=== PATIENT | female | born 1985 | race Caucasian/White ===

== ENCOUNTER 2016-11-16 18:13 | Emergency (ER) | payer OTHER ==
[~2016-11-16] VITALS: Ht 160 cm; Wt 102.3 kg
[2016-11-16 21:00] VITALS: BP 134/81
[2016-11-16] MEDS ORDERED: IBUPROFEN 800 MG TABLET PO ONE (21:00)
== END 2016-11-16 21:06 | disposition home or self-care (01) ==
LOC: EMS 18:19
DX: H10.89 Other conjunctivitis (principal); H57.8 Other specified disorders of eye and adnexa
CPT/HCPCS: 99283

== ENCOUNTER 2017-11-09 08:34 | Emergency (ER) | payer OTHER ==
[~2017-11-09] VITALS: Ht 160 cm; Wt 81.8 kg
[2017-11-09] MEDS: IBUPROFEN 800 MG TABLET PO ONE (09:19)
[2017-11-09 10:37] VITALS: BP 129/81
== END 2017-11-09 10:42 | disposition home or self-care (01) ==
LOC: EMS 08:35
DX: S93.401A Sprain of unspecified ligament of right ankle, initial encounter (principal); M25.774 Osteophyte, right foot; Z91.040 Latex allergy status; W18.39XA Other fall on same level, initial encounter; Y93.89 Activity, other specified; Y92.89 Other specified places as the place of occurrence of the external cause; Y99.8 Other external cause status
CPT/HCPCS: 29515; 99284

== ENCOUNTER 2018-07-04 11:07 | Emergency (ER) | payer OTHER ==
[~2018-07-04] VITALS: Ht 160 cm; Wt 90.9 kg
[2018-07-04] MEDS ORDERED: LISI-661 PO (11:24)
[2018-07-04] MEDS ORDERED: ESCI10TA PO (11:24)
[2018-07-04] MEDS ORDERED: PERTUSS(ACELL),DIPH,TET VAC/PF 0.5 ML VIAL IM ONE (11:45)
[2018-07-04] MEDS ORDERED: BACITRACIN 0.9 GM PACKET OINTMENT TP ONE (12:45)
[2018-07-04 13:03] VITALS: BP 127/79
== END 2018-07-04 13:28 | disposition home or self-care (01) ==
LOC: EMS 11:08
DX: S51.812A Laceration without foreign body of left forearm, initial encounter (principal); Z91.040 Latex allergy status; W45.8XXA Other foreign body or object entering through skin, initial encounter; Y93.39 Activity, other involving climbing, rappelling and jumping off; Y92.89 Other specified places as the place of occurrence of the external cause; Y99.8 Other external cause status
CPT/HCPCS: 90471; 90715

== ENCOUNTER 2018-10-06 19:11 | Emergency (ER) | payer OTHER ==
[~2018-10-06] VITALS: Ht 170.2 cm; Wt 109.1 kg
[~2018-10-06 19:11] MED LIST: ESCI10TA PO; LISI-661 PO
[2018-10-06] MEDS ORDERED: HYDR25TA PO (19:41)
[2018-10-06] MEDS ORDERED: OLAN2.5T3 PO (19:41)
[2018-10-06 20:12] LABS: BASOPHILS % (AUTO) 1.1 % (0.0-2.0); EOSINOPHILS % (AUTO) 1.2 % (1.0-6.0); HEMATOCRIT 36.4 % (36-46); HEMOGLOBIN 11.8 g/dL (12.0-16.0); LYMPHOCYTES # (AUTO) 2.8 K/uL (1.0-4.8); LYMPHOCYTES % (AUTO) 31.4 % (22.0-44.0); MEAN CORPUSCULAR HEMOGLOBIN 26.3 pg (26.0-34.0); MEAN CORPUSCULAR HGB CONC 32.5 G/dL (31.0-37.0); MEAN CORPUSCULAR VOLUME 81 fL (80-100); MONOCYTES % (AUTO) 11.3 % (2.0-9.0); NEUTROPHILS # (AUTO) 4.9 K/uL (1.8-7.7); PLATELET COUNT (AUTO) 274 K/uL (150-450); RED BLOOD CELL COUNT(AUTO) 4.51 MIL/uL (4.00-5.20); RED CELL DISTRIBUTION WIDTH 14.5 % (11.5-14.5)
[2018-10-06 20:16] VITALS: BP 143/88
[2018-10-06 20:45] LABS: ANION GAP 15 mmol/L (8-16); CALCIUM, TOTAL 9.4 mg/dL (8.8-10.5); CARBON DIOXIDE 21 mmol/L (22-29); CHLORIDE 100 mmol/L (98-107); CREATININE 1.09 mg/dL (0.60-1.30); GLOMERULAR FILTR. RATE CALC 57 mL/min (>60); GLUCOSE,RANDOM 93 mg/dL (70-110); POTASSIUM 3.4 mmol/L (3.5-5.1); SODIUM SERUM 136 mmol/L (136-145); UREA NITROGEN, BLOOD 19 mg/dL (7-18)
[2018-10-06 20:50] LABS: ALANINE AMINOTRANSFERASE 82 U/L (12-78); ALBUMIN 3.8 g/dL (3.4-5.0); ALKALINE PHOSPHATASE 82 U/L (46-116); ASPARTATE AMINOTRANSFERASE 163 U/L (15-37); BILIRUBIN,TOTAL 1.5 mg/dL (0.1-1.0); HCG,QUANTITATIVE < 1 mIU/mL (0-6); TOTAL PROTEIN, SERUM 7.8 g/dL (6.4-8.2)
== END 2018-10-06 21:45 | disposition left against medical advice (07) ==
LOC: EMS 19:12
DX: Z00.8 Encounter for other general examination (principal); Z53.21 Procedure and treatment not carried out due to patient leaving prior to being seen by health care provider
CPT/HCPCS: 36415; 80053; 84702; 85025; G0480

== ENCOUNTER 2021-02-02 15:33 | Emergency (ER) | payer OTHER ==
[~2021-02-02] VITALS: Ht 170.2 cm; Wt 100.0 kg
[~2021-02-02 15:33] MED LIST changes: +ESCI-8 PO; -ESCI10TA PO; +HYDR25TA2 PO; -LISI-661 PO; +LISI-893 PO; +OLAN2.5T3 PO
[2021-02-02] MEDS ORDERED: IBUP-2071 PO (15:54)
[2021-02-02 16:35] LABS: BASOPHILS % (AUTO) 0.9 % (0.0-2.0); EOSINOPHILS % (AUTO) 2.9 % (1.0-6.0); LYMPHOCYTES % (AUTO) 31.2 % (22.0-44.0); MEAN CORPUSCULAR HGB CONC 32.5 G/dL (31.0-37.0); MEAN CORPUSCULAR VOLUME 83 fL (80-100); MONOCYTES # (AUTO) 0.5 K/uL (0.1-1.0); MONOCYTES % (AUTO) 7.2 % (2.0-9.0); NEUTROPHILS # (AUTO) 3.7 K/uL (1.8-7.7); NEUTROPHILS % (AUTO) 57.8 % (40.0-70.0); PLATELET COUNT (AUTO) 262 K/uL (150-450); RED BLOOD CELL COUNT(AUTO) 4.81 MIL/uL (4.00-5.20); RED CELL DISTRIBUTION WIDTH 17.4 % (11.5-14.5)
[2021-02-02 16:49] LABS: ANION GAP 12 mmol/L (8-16); CARBON DIOXIDE 25 mmol/L (22-29); CHLORIDE 104 mmol/L (98-107); CREATININE 0.82 mg/dL (0.60-1.30); GLOMERULAR FILTR. RATE CALC > 60 mL/min (>60); GLUCOSE,RANDOM 90 mg/dL (70-110); POTASSIUM 4.1 mmol/L (3.5-5.1); SODIUM SERUM 141 mmol/L (136-145); UREA NITROGEN, BLOOD 14 mg/dL (7-18)
[2021-02-02 17:01] LABS: HCG,QUANTITATIVE 1 mIU/mL (0-6)
[2021-02-02] MEDS ORDERED: OLAN10TA74 PO (17:52)
[2021-02-02] MEDS ORDERED: IBUPROFEN 600 MG TABLET PO ONE (18:00)
[2021-02-02 18:02] VITALS: BP 129/72
== END 2021-02-02 18:43 | disposition home or self-care (01) ==
LOC: EMS 15:36
DX: N92.0 Excessive and frequent menstruation with regular cycle (principal)
CPT/HCPCS: 76856; 80048; 84702; 85025; 99284

== ENCOUNTER 2021-04-08 18:28 | Emergency (ER) | payer OTHER ==
[~2021-04-08] VITALS: Ht 160 cm; Wt 94.5 kg
[~2021-04-08 18:28] MED LIST changes: +IBUP-2071 PO; +OLAN10TA74 PO; -OLAN2.5T3 PO
[2021-04-08 20:17] LABS: COVID AG,FIA SOURCE NASOPHARYNGEAL
[2021-04-08 20:25] VITALS: BP 115/74
== END 2021-04-08 21:33 | disposition home or self-care (01) ==
LOC: EMS 18:36
DX: R05.9 Cough, unspecified (principal); I10 Essential (primary) hypertension; F17.210 Nicotine dependence, cigarettes, uncomplicated; F12.90 Cannabis use, unspecified, uncomplicated; F15.90 Other stimulant use, unspecified, uncomplicated; Z20.822 Contact with and (suspected) exposure to COVID-19
CPT/HCPCS: 87426; 99283; U0003

== ENCOUNTER 2021-05-11 15:41 | Emergency (ER) | payer OTHER ==
[~2021-05-11] VITALS: Ht 160 cm; Wt 90.9 kg
[2021-05-11 16:37] VITALS: BP 144/92
== END 2021-05-11 18:00 | disposition left against medical advice (07) ==
LOC: EMS 15:53
DX: J06.9 Acute upper respiratory infection, unspecified (principal); F17.210 Nicotine dependence, cigarettes, uncomplicated; Z20.822 Contact with and (suspected) exposure to COVID-19; Z91.040 Latex allergy status
CPT/HCPCS: 99282; 99406; Z7502

== ENCOUNTER 2021-07-02 14:57 | Emergency (ER) | payer OTHER ==
[~2021-07-02] VITALS: Ht 160 cm; Wt 90.9 kg
[2021-07-02 15:34] VITALS: BP 134/77
[2021-07-02 15:56] LABS: BASOPHILS % (AUTO) 0.9 % (0.0-2.0); EOSINOPHILS % (AUTO) 3.4 % (1.0-6.0); HEMATOCRIT 36.5 % (36-46); HEMOGLOBIN 12.1 g/dL (12.0-16.0); LYMPHOCYTES # (AUTO) 1.8 K/uL (1.0-4.8); LYMPHOCYTES % (AUTO) 26.2 % (22.0-44.0); MEAN CORPUSCULAR HEMOGLOBIN 28.1 pg (26.0-34.0); MEAN CORPUSCULAR HGB CONC 33.2 G/dL (31.0-37.0); MEAN CORPUSCULAR VOLUME 85 fL (80-100); MONOCYTES # (AUTO) 0.7 K/uL (0.1-1.0); MONOCYTES % (AUTO) 10.8 % (2.0-9.0); NEUTROPHILS # (AUTO) 3.9 K/uL (1.8-7.7); NEUTROPHILS % (AUTO) 58.7 % (40.0-70.0); PLATELET COUNT (AUTO) 257 K/uL (150-450); RED BLOOD CELL COUNT(AUTO) 4.32 MIL/uL (4.00-5.20); RED CELL DISTRIBUTION WIDTH 14.7 % (11.5-14.5)
[2021-07-02] MEDS ORDERED: IBUP-2070 PO (16:22)
[2021-07-02] MEDS ORDERED: KETOROLAC TROMETHAMINE 30 MG/ML VIAL IM ONE (16:30)
== END 2021-07-02 16:43 | disposition home or self-care (01) ==
LOC: EMS 15:02
DX: N93.8 Other specified abnormal uterine and vaginal bleeding (principal); F17.210 Nicotine dependence, cigarettes, uncomplicated; Z79.899 Other long term (current) drug therapy; Z91.040 Latex allergy status
CPT/HCPCS: 36415; 84702; 85025; 96372; 99283; J1885

== ENCOUNTER 2021-11-18 22:29 | Emergency (ER) | payer OTHER ==
[~2021-11-18] VITALS: Ht 160 cm; Wt 84.1 kg
[~2021-11-18 22:29] MED LIST changes: +IBUP-2070 PO
[2021-11-18 23:29] LABS: BASOPHILS % (AUTO) 0.9 % (0.0-2.0); HEMOGLOBIN 12.7 g/dL (12.0-16.0); LYMPHOCYTES # (AUTO) 2.7 K/uL (1.0-4.8); MEAN CORPUSCULAR HEMOGLOBIN 29.1 pg (26.0-34.0); MEAN CORPUSCULAR HGB CONC 33.5 G/dL (31.0-37.0); MEAN CORPUSCULAR VOLUME 87 fL (80-100); MONOCYTES # (AUTO) 0.7 K/uL (0.1-1.0); MONOCYTES % (AUTO) 7.7 % (2.0-9.0); NEUTROPHILS % (AUTO) 57.4 % (40.0-70.0); PLATELET COUNT (AUTO) 230 K/uL (150-450); RED BLOOD CELL COUNT(AUTO) 4.37 MIL/uL (4.00-5.20); RED CELL DISTRIBUTION WIDTH 14.5 % (11.5-14.5)
[2021-11-19 02:11] VITALS: BP 118/84
== END 2021-11-19 02:46 | disposition home or self-care (01) ==
LOC: EMS 22:44
DX: O20.8 Other hemorrhage in early pregnancy (principal); Z3A.08 8 weeks gestation of pregnancy
CPT/HCPCS: 76801; 76817; 84702; 85025; 86901; 99284

== ENCOUNTER 2021-12-01 23:32 | Emergency (ER) | payer OTHER ==
[~2021-12-01] VITALS: Ht 165.1 cm; Wt 77.3 kg
[2021-12-02 00:09] VITALS: BP 140/98
[2021-12-02] MEDS ORDERED: CLIN-26 PO (00:09)
[2021-12-02] MEDS ORDERED: CLINDAMYCIN HCL 150 MG CAPSULE PO ONE (00:15)
[2021-12-02] MEDS ORDERED: ACETAMINOPHEN 500 MG TABLET PO ONE (00:15)
== END 2021-12-02 00:49 | disposition home or self-care (01) ==
LOC: EMS 23:32
DX: O99.711 Diseases of the skin and subcutaneous tissue complicating pregnancy, first trimester (principal); L03.115 Cellulitis of right lower limb; F17.210 Nicotine dependence, cigarettes, uncomplicated; Z3A.10 10 weeks gestation of pregnancy; Z86.59 Personal history of other mental and behavioral disorders; Z87.898 Personal history of other specified conditions; Z91.040 Latex allergy status
CPT/HCPCS: 99283

== ENCOUNTER 2021-12-13 22:37 | Emergency (ER) | payer OTHER ==
[~2021-12-13] VITALS: Ht 160 cm; Wt 81.8 kg
[~2021-12-13 22:37] MED LIST changes: +CLIN-26 PO; -ESCI-8 PO; -HYDR25TA2 PO; -IBUP-2070 PO; -IBUP-2071 PO; -LISI-893 PO; -OLAN10TA74 PO
[2021-12-13] MEDS ORDERED: ACETAMINOPHEN 500 MG TABLET PO ONE (23:00)
[2021-12-13 23:42] LABS: BASOPHILS % (AUTO) 0.7 % (0.0-2.0); EOSINOPHILS % (AUTO) 2.6 % (1.0-6.0); HEMATOCRIT 34.6 % (36-46); HEMOGLOBIN 11.7 g/dL (12.0-16.0); LYMPHOCYTES # (AUTO) 2.4 K/uL (1.0-4.8); LYMPHOCYTES % (AUTO) 26.5 % (22.0-44.0); MEAN CORPUSCULAR HEMOGLOBIN 29.3 pg (26.0-34.0); MEAN CORPUSCULAR HGB CONC 33.7 G/dL (31.0-37.0); MEAN CORPUSCULAR VOLUME 87 fL (80-100); MONOCYTES # (AUTO) 0.6 K/uL (0.1-1.0); NEUTROPHILS # (AUTO) 5.6 K/uL (1.8-7.7); NEUTROPHILS % (AUTO) 63.2 % (40.0-70.0); PLATELET COUNT (AUTO) 254 K/uL (150-450); RED BLOOD CELL COUNT(AUTO) 3.98 MIL/uL (4.00-5.20); RED CELL DISTRIBUTION WIDTH 14.2 % (11.5-14.5)
[2021-12-13 23:53] LABS: ANION GAP 10 mmol/L (8-16); CALCIUM, TOTAL 8.6 mg/dL (8.8-10.5); CARBON DIOXIDE 23 mmol/L (22-29); CHLORIDE 103 mmol/L (98-107); CREATININE 0.74 mg/dL (0.60-1.30); GLOMERULAR FILTR. RATE CALC > 60 mL/min (>60); GLUCOSE,RANDOM 89 mg/dL (70-110); POTASSIUM 3.7 mmol/L (3.5-5.1); SODIUM SERUM 136 mmol/L (136-145); UREA NITROGEN, BLOOD 12 mg/dL (7-18)
[2021-12-14 00:23] LABS: ALANINE AMINOTRANSFERASE 21 U/L (12-78); ALBUMIN 3.2 g/dL (3.4-5.0); ALKALINE PHOSPHATASE 57 U/L (46-116); ASPARTATE AMINOTRANSFERASE 13 U/L (15-37); BILIRUBIN,TOTAL 0.3 mg/dL (0.1-1.0); TOTAL PROTEIN, SERUM 6.6 g/dL (6.4-8.2)
[2021-12-14 00:25] LABS: HCG,QUANTITATIVE 34760 mIU/mL (0-6)
[2021-12-14] MEDS ORDERED: SODIUM CHLORIDE 0.9% 1,000 ML IV ONE (00:45)
[2021-12-14] MEDS ORDERED: ONDANSETRON HCL 4 MG/2 ML VIAL IVP ONE (00:45)
[2021-12-14] MEDS ORDERED: ACETAMINOPHEN 500 MG TABLET PO ONE (05:30)
[2021-12-14 05:36] VITALS: BP 135/85
== END 2021-12-14 06:27 | disposition home or self-care (01) ==
LOC: EMS 22:45
DX: O03.4 Incomplete spontaneous abortion without complication (principal); R10.30 Lower abdominal pain, unspecified; F17.210 Nicotine dependence, cigarettes, uncomplicated; Z91.040 Latex allergy status; Z86.59 Personal history of other mental and behavioral disorders; Z87.898 Personal history of other specified conditions
CPT/HCPCS: 99285; 76801; 80053; 84702; 85025; 86850; 86900; 86901; 36415; 76817; 96374; 96361; J2405; J7030

== ENCOUNTER 2022-01-06 19:59 | Emergency (ER) | payer OTHER ==
[~2022-01-06] VITALS: Ht 160 cm; Wt 86.4 kg
[2022-01-06 20:30] VITALS: BP 134/71
[2022-01-06 20:32] LABS: APPEARANCE,URINE TURBID (CLEAR); BILIRUBIN,URINE NEGATIVE (NEGATIVE); GLUCOSE, URINE (UA) NEGATIVE (NEGATIVE); KETONES,URINE NEGATIVE (NEGATIVE); LEUKOCYTE ESTERASE ,URINE LARGE (NEGATIVE); NITRATE,URINE NEGATIVE (NEGATIVE); OCCULT BLOOD,URINE SMALL (NEGATIVE); PROTEIN,URINE 30-70 mg/dL (NEGATIVE); SPECIFIC GRAVITIY, URINE 1.022 (1.003-1.030); UROBILINOGEN,URINE <=1.0 mg/dL (<=1.0)
[2022-01-06] MEDS ORDERED: NITR-75 PO (20:40)
[2022-01-06] MEDS ORDERED: PHEN-674 PO (20:40)
[2022-01-06 20:42] LABS: BACTERIA,URINE Few /HPF (None Seen)
[2022-01-06 20:43] LABS: SQUAMOUS EPITHELIAL CELL,UR Few /LPF (None Seen)
== END 2022-01-06 20:48 | disposition home or self-care (01) ==
LOC: EMS 19:59
DX: O23.42 Unspecified infection of urinary tract in pregnancy, second trimester (principal); N39.0 Urinary tract infection, site not specified; R30.0 Dysuria; R35.0 Frequency of micturition; R39.15 Urgency of urination; F17.210 Nicotine dependence, cigarettes, uncomplicated; F19.90 Other psychoactive substance use, unspecified, uncomplicated; Z87.440 Personal history of urinary (tract) infections; Z86.59 Personal history of other mental and behavioral disorders; Z87.898 Personal history of other specified conditions; Z91.040 Latex allergy status; Z3A.16 16 weeks gestation of pregnancy
CPT/HCPCS: 81001; 87086; 99283

== ENCOUNTER 2022-05-03 15:48 | Emergency (ER) | payer OTHER ==
[~2022-05-03] VITALS: Ht 165.1 cm; Wt 68.2 kg
[~2022-05-03 15:48] MED LIST changes: +NITR-75 PO; +PHEN-674 PO
[2022-05-03 16:49] LABS: APPEARANCE,URINE CLEAR (CLEAR); BILIRUBIN,URINE NEGATIVE (NEGATIVE); GLUCOSE, URINE (UA) NEGATIVE (NEGATIVE); KETONES,URINE NEGATIVE (NEGATIVE); LEUKOCYTE ESTERASE ,URINE NEGATIVE (NEGATIVE); NITRATE,URINE NEGATIVE (NEGATIVE); OCCULT BLOOD,URINE NEGATIVE (NEGATIVE); PH,URINE 5.5 (5.0-8.0); PROTEIN,URINE NEGATIVE (NEGATIVE); SPECIFIC GRAVITIY, URINE 1.006 (1.003-1.030); UROBILINOGEN,URINE <=1.0 mg/dL (<=1.0)
[2022-05-03 17:11] LABS: BACTERIA,URINE None Seen /HPF (None Seen); RBC,URINE None Seen /HPF (0-2); WBC,URINE None Seen /HPF (0-5)
[2022-05-03 17:22] VITALS: BP 141/89
[2022-05-03 17:25] LABS: COVID AG,FIA SOURCE NASOPHARYNGEAL
[2022-05-03 17:55] LABS: INFLUENZA TYPE A NEGATIVE FOR TYPE A (NEGATIVE); INFLUENZA TYPE B NEGATIVE FOR TYPE B (NEGATIVE)
== END 2022-05-03 18:41 | disposition home or self-care (01) ==
LOC: EMS 15:48
DX: J06.9 Acute upper respiratory infection, unspecified (principal); N39.0 Urinary tract infection, site not specified; F17.210 Nicotine dependence, cigarettes, uncomplicated; F12.90 Cannabis use, unspecified, uncomplicated; Z91.040 Latex allergy status; Z20.822 Contact with and (suspected) exposure to COVID-19; Z98.890 Other specified postprocedural states
CPT/HCPCS: 71045; 81001; 84703; 87430; 87804; 99284

== ENCOUNTER 2022-05-11 00:06 | Emergency (ER) | payer OTHER ==
[~2022-05-11] VITALS: Ht 172.7 cm; Wt 80.0 kg
[2022-05-11] MEDS ORDERED: PROPARACAINE HCL 0.5% 15 ML OPHTHALMIC SOLUTION OD ONE (01:30)
[2022-05-11] MEDS ORDERED: FLUORESCEIN SODIUM 1 MG STRIP OD ONE (01:30)
[2022-05-11] MEDS ORDERED: ERYT3.5O8 OU (01:52)
[2022-05-11 02:00] VITALS: BP 139/74
== END 2022-05-11 02:54 | disposition home or self-care (01) ==
LOC: EMS 00:07
DX: H10.9 Unspecified conjunctivitis (principal); F12.90 Cannabis use, unspecified, uncomplicated; F17.210 Nicotine dependence, cigarettes, uncomplicated; Z91.040 Latex allergy status
CPT/HCPCS: 99283

== ENCOUNTER 2022-07-14 16:33 | Emergency (ER) | payer OTHER ==
[~2022-07-14] VITALS: Ht 160 cm; Wt 83.6 kg
[~2022-07-14 16:33] MED LIST changes: -CLIN-26 PO; +ERYT3.5O8 OU; -NITR-75 PO; -PHEN-674 PO
[2022-07-14 17:56] VITALS: BP 144/92
[2022-07-14] MEDS ORDERED: ACETAMINOPHEN 500 MG TABLET PO ONE (18:15)
== END 2022-07-14 18:41 ==
LOC: EMS 16:34
DX: S80.11XA Contusion of right lower leg, initial encounter (principal); R45.851 Suicidal ideations; F17.210 Nicotine dependence, cigarettes, uncomplicated; F12.90 Cannabis use, unspecified, uncomplicated; Z98.890 Other specified postprocedural states; Z91.040 Latex allergy status; X58.XXXA Exposure to other specified factors, initial encounter; Y93.89 Activity, other specified; Y92.89 Other specified places as the place of occurrence of the external cause; Y99.8 Other external cause status
CPT/HCPCS: 99283

== ENCOUNTER 2022-08-29 21:08 | Emergency (ER) | payer OTHER ==
[~2022-08-29] VITALS: Ht 160 cm; Wt 82.7 kg
[2022-08-29 21:52] LABS: BASOPHILS % (AUTO) 1.3 % (0.0-2.0); EOSINOPHILS % (AUTO) 3.9 % (1.0-6.0); HEMATOCRIT 37.7 % (36-46); HEMOGLOBIN 12.1 g/dL (12.0-16.0); LYMPHOCYTES # (AUTO) 2.3 K/uL (1.0-4.8); LYMPHOCYTES % (AUTO) 34.7 % (22.0-44.0); MEAN CORPUSCULAR HEMOGLOBIN 26.1 pg (26.0-34.0); MEAN CORPUSCULAR HGB CONC 32.1 G/dL (31.0-37.0); MEAN CORPUSCULAR VOLUME 81 fL (80-100); MONOCYTES # (AUTO) 0.6 K/uL (0.1-1.0); MONOCYTES % (AUTO) 8.4 % (2.0-9.0); NEUTROPHILS # (AUTO) 3.5 K/uL (1.8-7.7); NEUTROPHILS % (AUTO) 51.7 % (40.0-70.0); PLATELET COUNT (AUTO) 318 K/uL (150-450); RED BLOOD CELL COUNT(AUTO) 4.64 MIL/uL (4.00-5.20); RED CELL DISTRIBUTION WIDTH 16.4 % (11.5-14.5)
[2022-08-29 22:01] LABS: ANION GAP 10 mmol/L (8-16); CALCIUM, TOTAL 8.9 mg/dL (8.8-10.5); CARBON DIOXIDE 26 mmol/L (22-29); CHLORIDE 101 mmol/L (98-107); CREATININE 0.85 mg/dL (0.60-1.30); GLOMERULAR FILTR. RATE CALC > 60 mL/min (>60); GLUCOSE,RANDOM 94 mg/dL (70-110); POTASSIUM 3.6 mmol/L (3.5-5.1); SODIUM SERUM 137 mmol/L (136-145)
[2022-08-29 22:08] LABS: ALANINE AMINOTRANSFERASE 27 U/L (12-78); ALKALINE PHOSPHATASE 71 U/L (46-116); ASPARTATE AMINOTRANSFERASE 19 U/L (15-37); BILIRUBIN,TOTAL 0.3 mg/dL (0.1-1.0); LIPASE 199 U/L (73-393)
[2022-08-29 22:14] LABS: LACTIC ACID 0.6 mmol/L (0.4-2.0)
[2022-08-29 22:18] LABS: COVID AG,FIA SOURCE NASOPHARYNGEAL
[2022-08-29 22:18] LABS: APPEARANCE,URINE CLEAR (CLEAR); BILIRUBIN,URINE NEGATIVE (NEGATIVE); GLUCOSE, URINE (UA) NEGATIVE (NEGATIVE); KETONES,URINE NEGATIVE (NEGATIVE); LEUKOCYTE ESTERASE ,URINE TRACE (NEGATIVE); NITRATE,URINE NEGATIVE (NEGATIVE); OCCULT BLOOD,URINE NEGATIVE (NEGATIVE); PROTEIN,URINE NEGATIVE (NEGATIVE); SPECIFIC GRAVITIY, URINE 1.006 (1.003-1.030); UROBILINOGEN,URINE <=1.0 mg/dL (<=1.0)
[2022-08-29 22:25] LABS: AMPHET/METH SCREEN,URINE POSITIVE (NEGATIVE); BARBITURATE SCREEN, URINE NEGATIVE (NEGATIVE); BENZODIAZEPINES SCREEN,URINE NEGATIVE (NEGATIVE); CANNABINOID SCREEN,URINE POSITIVE (NEGATIVE); COCAINE SCREEN,URINE NEGATIVE (NEGATIVE); METHADONE SCREEN, URINE NEGATIVE (NEGATIVE); OPIATE SCREEN,URINE NEGATIVE (NEGATIVE); PHENCYCLIDINE SCREEN,URINE NEGATIVE (NEGATIVE)
[2022-08-29 22:30] LABS: BACTERIA,URINE Rare /HPF (None Seen); RBC,URINE 0-2 /HPF (0-2); SQUAMOUS EPITHELIAL CELL,UR Few /LPF (None Seen)
[2022-08-29 22:39] VITALS: BP 163/98
== END 2022-08-29 22:41 | disposition home or self-care (01) ==
LOC: EMS 21:10
DX: F10.20 Alcohol dependence, uncomplicated (principal); I10 Essential (primary) hypertension; F17.210 Nicotine dependence, cigarettes, uncomplicated; F12.90 Cannabis use, unspecified, uncomplicated; Z98.890 Other specified postprocedural states; Z91.040 Latex allergy status; Z20.822 Contact with and (suspected) exposure to COVID-19; Y90.9 Presence of alcohol in blood, level not specified
CPT/HCPCS: 99283; 87426; 80053; 81001; 83605; 83690; 84703; 85025; 36415; 80307 ×2; G0480

== ENCOUNTER 2022-09-06 07:23 | Emergency (ER) | payer OTHER | END 2022-09-06 08:25 | disposition left against medical advice (07) | LOC: EMS 07:23 | DX: Z53.21 Procedure and treatment not carried out due to patient leaving prior to being seen by health care provider (principal) ==

== ENCOUNTER 2022-09-06 10:49 | Inpatient (IN) | payer MEDICAID ==
[~2022-09-06] VITALS: Ht 160 cm; Wt 81.0 kg
[2022-09-06] MEDS: ZOLPIDEM TARTRATE 10 MG TABLET PO PRN (11:24)
[2022-09-06 21:45] VITALS: BP 128/71
[2022-09-06] MEDS ORDERED: HALOPERIDOL 5 MG TABLET PO PRN (23:15)
[2022-09-06] MEDS ORDERED: LORazepam 2 MG TABLET PO PRN (23:15)
[2022-09-06 23:45] VITALS: BP 121/75
[2022-09-07 01:45] VITALS: BP 129/80
[2022-09-07] MEDS ORDERED: ALBUTEROL SULFATE HFA 90 MCG/PUFF 8 GM INHALER IH PRN (06:45)
[2022-09-07] MEDS ORDERED: MAG HYDROX/AL HYDROX/SIMETH ES 30 ML SUSPENSION UDCUP PO PRN (06:45)
[2022-09-07] MEDS ORDERED: GuaiFENesin/D-METHORPHAN [SUGAR-FREE] 200-20MG/10 ML SYRUP UDCUP PO PRN (06:45)
[2022-09-07] MEDS ORDERED: NICOTINE 14 MG/24 HOUR PATCH TD PRN (06:45)
[2022-09-07] MEDS ORDERED: IBUPROFEN 400 MG TABLET PO PRN (06:45)
[2022-09-07] MEDS ORDERED: ACETAMINOPHEN 325 MG TABLET PO PRN (06:45)
[2022-09-07] MEDS ORDERED: MAGNESIUM HYDROXIDE SUSPENSION 30 ML UDCUP PO PRN (06:45)
[2022-09-07] MEDS ORDERED: LOPERAMIDE HCL 2 MG CAPSULE PO PRN (06:45)
[2022-09-07] MEDS ORDERED: DOCUSATE SODIUM 100 MG CAPSULE PO PRN (06:45)
[2022-09-07] MEDS ORDERED: ONDANSETRON HCL 4 MG TABLET PO PRN (06:45)
[2022-09-07] MEDS ORDERED: PETROLATUM,WHITE 28 GM JELLY TP PRN (06:45)
[2022-09-07] MEDS ORDERED: CloNIDine HCL 0.1 MG TABLET PO PRN (06:45)
[2022-09-07 07:33] LABS: BASOPHILS % (AUTO) 1.2 % (0.0-2.0); HEMATOCRIT 36.8 % (36-46); HEMOGLOBIN 11.9 g/dL (12.0-16.0); LYMPHOCYTES % (AUTO) 30.3 % (22.0-44.0); MEAN CORPUSCULAR HEMOGLOBIN 26.6 pg (26.0-34.0); MEAN CORPUSCULAR HGB CONC 32.3 G/dL (31.0-37.0); MEAN CORPUSCULAR VOLUME 82 fL (80-100); MONOCYTES # (AUTO) 0.6 K/uL (0.1-1.0); NEUTROPHILS # (AUTO) 3.5 K/uL (1.8-7.7); NEUTROPHILS % (AUTO) 53.5 % (40.0-70.0); PLATELET COUNT (AUTO) 252 K/uL (150-450); RED BLOOD CELL COUNT(AUTO) 4.49 MIL/uL (4.00-5.20); RED CELL DISTRIBUTION WIDTH 16.5 % (11.5-14.5)
[2022-09-07 08:01] LABS: ALANINE AMINOTRANSFERASE 16 U/L (12-78); ALBUMIN 3.4 g/dL (3.4-5.0); ALKALINE PHOSPHATASE 70 U/L (46-116); ANION GAP 9 mmol/L (8-16); ASPARTATE AMINOTRANSFERASE 12 U/L (15-37); BILIRUBIN,TOTAL 0.6 mg/dL (0.1-1.0); CALCIUM, TOTAL 9.1 mg/dL (8.8-10.5); CARBON DIOXIDE 27 mmol/L (22-29); CHLORIDE 103 mmol/L (98-107); CHOL/HDL RATIO 3.2 (3.9-5.7); CHOLESTEROL 183 mg/dL (131-200); CREATININE 0.83 mg/dL (0.60-1.30); FREE T4 (FREE THYROXINE) 1.21 ng/dL (0.76-1.46); GLOMERULAR FILTR. RATE CALC > 60 mL/min (>60); GLUCOSE,RANDOM 92 mg/dL (70-110); HDL CHOLESTEROL 58 mg/dL (40-60); LDL CHOL (CALC.) 108 mg/dL (0-130); POTASSIUM 4.2 mmol/L (3.5-5.1); SODIUM SERUM 139 mmol/L (136-145); THYROID STIMULATING HORMONE 0.71 uIU/mL (0.36-3.74); TOTAL PROTEIN, SERUM 7.2 g/dL (6.4-8.2); TRIGLYCERIDES 86 mg/dL (15-150)
[2022-09-07 08:03] LABS: HEMOGLOBIN A1C 5.2 % (3.8-5.6)
[2022-09-07] MEDS ORDERED: DIAZEPAM 10 MG TABLET PO PRN (09:15)
[2022-09-07] MEDS ORDERED: HydrOXYzine PAMOATE 25 MG CAPSULE PO PRN (09:30)
[2022-09-07] MEDS: CYANOCOBALAMIN 1,000 MCG/ML VIAL IM ONE ×2 (10:57→11:08)
[2022-09-07] MEDS: MULTIVITAMINS WITH MINERALS, THERAPEUTIC TABLET PO SCH (10:57)
[2022-09-07] MEDS: THIAMINE 100 MG TABLET PO SCH ×2 (10:57→16:54)
[2022-09-07] MEDS: SERTRALINE HCL 50 MG TABLET PO SCH (10:57)
[2022-09-07] MEDS: FOLIC ACID 1 MG TABLET PO SCH (10:59)
[2022-09-07 11:11] VITALS: BP 128/81
[2022-09-07] MEDS: ZOLPIDEM TARTRATE 10 MG TABLET PO PRN (21:33)
[2022-09-08] MEDS ORDERED: DIAZEPAM 10 MG TABLET PO PRN (07:00)
[2022-09-08 08:00] VITALS: BP 114/70
[2022-09-08] MEDS: MULTIVITAMINS WITH MINERALS, THERAPEUTIC TABLET PO SCH (08:09)
[2022-09-08] MEDS: SERTRALINE HCL 50 MG TABLET PO SCH (08:09)
[2022-09-08] MEDS: THIAMINE 100 MG TABLET PO SCH ×2 (08:09→16:40)
[2022-09-08] MEDS: FOLIC ACID 1 MG TABLET PO SCH (08:09)
[2022-09-08] MEDS: DIAZEPAM 10 MG TABLET PO SCH ×4 (08:10→21:01)
[2022-09-08 08:19] VITALS: BP 114/70
[2022-09-09 06:09] VITALS: BP 148/86
[2022-09-09 06:11] VITALS: BP 148/86
[2022-09-09] MEDS: FOLIC ACID 1 MG TABLET PO SCH (08:01)
[2022-09-09] MEDS: SERTRALINE HCL 50 MG TABLET PO SCH (08:01)
[2022-09-09] MEDS: MULTIVITAMINS WITH MINERALS, THERAPEUTIC TABLET PO SCH (08:01)
[2022-09-09] MEDS: THIAMINE 100 MG TABLET PO SCH (08:01)
[2022-09-09] MEDS: DIAZEPAM 10 MG TABLET PO SCH (08:03)
[2022-09-09 08:07] VITALS: BP 123/79
[2022-09-09 08:25] VITALS: BP 123/79
[2022-09-09] MEDS ORDERED: SERT-158 PO (12:11)
[2022-09-09] MEDS ORDERED: THIA100T80 PO (12:57)
[2022-09-09] MEDS ORDERED: SERT-439 PO (12:57)
[2022-09-10] MEDS ORDERED: DIAZEPAM 5 MG TABLET PO PRN (07:00)
[2022-09-10] MEDS ORDERED: DIAZEPAM 5 MG TABLET PO SCH (09:00)
[2022-09-11] MEDS ORDERED: DIAZEPAM 5 MG TABLET PO PRN (07:00)
== END 2022-09-09 12:50 | disposition home or self-care (01) | DRG 751 ==
LOC: B3A 22:58
PROVIDERS: ADMIT Psychiatry & Neurology Child & Adolescent Psychiatry; ATTEND Psychiatry & Neurology Child & Adolescent Psychiatry
DX: F33.2 Major depressive disorder, recurrent severe without psychotic features (principal); F10.20 Alcohol dependence, uncomplicated; G47.00 Insomnia, unspecified; F12.10 Cannabis abuse, uncomplicated; T42.4X2A Poisoning by benzodiazepines, intentional self-harm, initial encounter; F15.10 Other stimulant abuse, uncomplicated; R03.0 Elevated blood-pressure reading, without diagnosis of hypertension; Z79.899 Other long term (current) drug therapy; Z91.410 Personal history of adult physical and sexual abuse; Z91.51 Personal history of suicidal behavior; Z91.040 Latex allergy status; Y92.89 Other specified places as the place of occurrence of the external cause
CPT/HCPCS: 80053; 80061; 83036; 84439; 84443; 85025; J3420

== ENCOUNTER 2022-09-06 14:54 | Emergency (ER) | payer MEDICAID, OTHER ==
[~2022-09-06] VITALS: Ht 160 cm; Wt 81.0 kg
[2022-09-06 17:03] LABS: BASOPHILS % (AUTO) 0.8 % (0.0-2.0); EOSINOPHILS % (AUTO) 4.2 % (1.0-6.0); HEMATOCRIT 35.7 % (36-46); HEMOGLOBIN 11.6 g/dL (12.0-16.0); LYMPHOCYTES # (AUTO) 1.8 K/uL (1.0-4.8); LYMPHOCYTES % (AUTO) 26.2 % (22.0-44.0); MEAN CORPUSCULAR HEMOGLOBIN 26.6 pg (26.0-34.0); MEAN CORPUSCULAR HGB CONC 32.5 G/dL (31.0-37.0); MEAN CORPUSCULAR VOLUME 82 fL (80-100); MONOCYTES # (AUTO) 0.7 K/uL (0.1-1.0); MONOCYTES % (AUTO) 10.2 % (2.0-9.0); NEUTROPHILS % (AUTO) 58.6 % (40.0-70.0); PLATELET COUNT (AUTO) 251 K/uL (150-450); RED BLOOD CELL COUNT(AUTO) 4.37 MIL/uL (4.00-5.20); RED CELL DISTRIBUTION WIDTH 16.4 % (11.5-14.5)
[2022-09-06 17:10] LABS: ANION GAP 10 mmol/L (8-16); CALCIUM, TOTAL 8.8 mg/dL (8.8-10.5); CARBON DIOXIDE 28 mmol/L (22-29); CHLORIDE 104 mmol/L (98-107); CREATININE 0.89 mg/dL (0.60-1.30); GLOMERULAR FILTR. RATE CALC > 60 mL/min (>60); GLUCOSE,RANDOM 95 mg/dL (70-110); POTASSIUM 3.6 mmol/L (3.5-5.1); SODIUM SERUM 142 mmol/L (136-145)
[2022-09-06 17:15] LABS: ALANINE AMINOTRANSFERASE 20 U/L (12-78); ALBUMIN 3.9 g/dL (3.4-5.0); ALKALINE PHOSPHATASE 84 U/L (46-116); ASPARTATE AMINOTRANSFERASE 15 U/L (15-37); BILIRUBIN,TOTAL 0.8 mg/dL (0.1-1.0); TOTAL PROTEIN, SERUM 7.6 g/dL (6.4-8.2)
[2022-09-06 18:02] VITALS: BP 140/86
[2022-09-06 19:18] LABS: COVID AG,FIA SOURCE NASAL SWAB
== END 2022-09-06 21:10 | disposition home or self-care (01) ==
LOC: EMS 14:54
DX: S09.90XA Unspecified injury of head, initial encounter (principal); I10 Essential (primary) hypertension; Z87.440 Personal history of urinary (tract) infections; F17.210 Nicotine dependence, cigarettes, uncomplicated; F12.90 Cannabis use, unspecified, uncomplicated; Z91.040 Latex allergy status; Z20.822 Contact with and (suspected) exposure to COVID-19; Z98.890 Other specified postprocedural states; Y09 Assault by unspecified means; Y93.89 Activity, other specified; Y92.89 Other specified places as the place of occurrence of the external cause; Y99.8 Other external cause status
CPT/HCPCS: 99284; 70450; 87426; 80053; 85025; 36415; 72125; G0480

== ENCOUNTER 2022-10-27 23:06 | Emergency (ER) | payer MEDICAID, OTHER ==
[~2022-10-27] VITALS: Ht 160 cm; Wt 81.8 kg
[~2022-10-27 23:06] MED LIST changes: -ERYT3.5O8 OU; +SERT-158 PO; +SERT-439 PO; +THIA100T80 PO
[2022-10-27 23:25] VITALS: BP 161/100; PULSE 97; RESP 14; TEMP 98.5
== END 2022-10-28 01:11 | disposition left against medical advice (07) ==
LOC: EMS 23:07
DX: F10.20 Alcohol dependence, uncomplicated (principal); I10 Essential (primary) hypertension; F17.210 Nicotine dependence, cigarettes, uncomplicated; F12.90 Cannabis use, unspecified, uncomplicated; R44.0 Auditory hallucinations; Z91.040 Latex allergy status
CPT/HCPCS: 99281; Z7502

== ENCOUNTER 2022-12-06 17:56 | Emergency (ER) | payer OTHER ==
[~2022-12-06] VITALS: Ht 160 cm; Wt 86.4 kg
[2022-12-06 18:00] VITALS: BP 151/111; PULSE 60; RESP 20; TEMP 98.8
== END 2022-12-06 18:50 | disposition left against medical advice (07) ==
LOC: EMS 18:48
DX: R45.851 Suicidal ideations (principal); R45.1 Restlessness and agitation; Z53.21 Procedure and treatment not carried out due to patient leaving prior to being seen by health care provider
CPT/HCPCS: 99281; Z7502

== ENCOUNTER 2023-03-26 16:51 | Emergency (ER) | payer OTHER ==
[~2023-03-26] VITALS: Ht 160 cm; Wt 81.0 kg
[2023-03-26 16:58] VITALS: TEMP 98.3
[2023-03-26] MEDS ORDERED: SODIUM CHLORIDE 0.9% 1,000 ML IV ONE (17:30)
[2023-03-26] MEDS ORDERED: ONDANSETRON HCL 4 MG/2 ML VIAL IVP ONE (17:30)
[2023-03-26 17:32] LABS: BASOPHILS % (AUTO) 1.1 % (0.0-2.0); EOSINOPHILS % (AUTO) 3.2 % (1.0-6.0); HEMATOCRIT 36.7 % (36-46); HEMOGLOBIN 12.2 g/dL (12.0-16.0); LYMPHOCYTES # (AUTO) 2.2 K/uL (1.0-4.8); LYMPHOCYTES % (AUTO) 42.8 % (22.0-44.0); MEAN CORPUSCULAR HEMOGLOBIN 28.2 pg (26.0-34.0); MEAN CORPUSCULAR HGB CONC 33.2 G/dL (31.0-37.0); MEAN CORPUSCULAR VOLUME 85 fL (80-100); MONOCYTES # (AUTO) 0.5 K/uL (0.1-1.0); MONOCYTES % (AUTO) 10.4 % (2.0-9.0); NEUTROPHILS # (AUTO) 2.2 K/uL (1.8-7.7); NEUTROPHILS % (AUTO) 42.5 % (40.0-70.0); PLATELET COUNT (AUTO) 304 K/uL (150-450); RED BLOOD CELL COUNT(AUTO) 4.33 MIL/uL (4.00-5.20); RED CELL DISTRIBUTION WIDTH 16.8 % (11.5-14.5); WHITE BLOOD COUNT (AUTO) 5.1 K/uL (4.5-11.0)
[2023-03-26 17:35] LABS: APPEARANCE,URINE HAZY (CLEAR); BILIRUBIN,URINE NEGATIVE (NEGATIVE); COLOR,URINE COLORLESS (YELLOW); GLUCOSE, URINE (UA) NEGATIVE (NEGATIVE); KETONES,URINE NEGATIVE (NEGATIVE); LEUKOCYTE ESTERASE ,URINE MODERATE (NEGATIVE); NITRATE,URINE NEGATIVE (NEGATIVE); OCCULT BLOOD,URINE LARGE (NEGATIVE); PROTEIN,URINE TRACE mg/dL (NEGATIVE); UROBILINOGEN,URINE <=1.0 mg/dL (<=1.0)
[2023-03-26 17:39] LABS: BACTERIA,URINE Few /HPF (None Seen); RBC,URINE 51-100 /HPF (0-2); SQUAMOUS EPITHELIAL CELL,UR Moderate /LPF (None Seen)
[2023-03-26 17:40] LABS: ANION GAP 10 mmol/L (8-16); CARBON DIOXIDE 24 mmol/L (22-29); CHLORIDE 102 mmol/L (98-107); CREATININE 0.71 mg/dL (0.60-1.30); GLOMERULAR FILTR. RATE CALC > 60 mL/min (>60); GLUCOSE,RANDOM 91 mg/dL (70-110); POTASSIUM 3.5 mmol/L (3.5-5.1); SODIUM SERUM 136 mmol/L (136-145); UREA NITROGEN, BLOOD 5 mg/dL (7-18)
[2023-03-26 17:50] LABS: ALANINE AMINOTRANSFERASE 17 U/L (12-78); ALBUMIN 3.9 g/dL (3.4-5.0); ALKALINE PHOSPHATASE 94 U/L (46-116); ASPARTATE AMINOTRANSFERASE 11 U/L (15-37); BILIRUBIN,TOTAL 0.3 mg/dL (0.1-1.0); HCG,QUANTITATIVE < 1 mIU/mL (0-6); LIPASE 52 U/L (16-77); TOTAL PROTEIN, SERUM 8.2 g/dL (6.4-8.2)
[2023-03-26] MEDS ORDERED: EMTRICITABINE/TENOFOVIR 200-300 MG TABLET PO ONE (18:15)
[2023-03-26] MEDS ORDERED: DOXYCYCLINE HYCLATE 100 MG TABLET PO ONE (18:15)
[2023-03-26] MEDS ORDERED: CefTRIAXone 1 GM/DEXTROSE 50 ML IV ONE (18:15)
[2023-03-26] MEDS ORDERED: RALTEGRAVIR 400 MG TABLET PO ONE (18:15)
[2023-03-26] MEDS ORDERED: DOXY-354 PO (18:27)
[2023-03-26] MEDS ORDERED: CEPH-558 PO (18:27)
[2023-03-26] MEDS ORDERED: EMTR1TAB53 PO (18:27)
[2023-03-26] MEDS ORDERED: RALT400T PO (18:27)
[2023-03-26 18:41] VITALS: BP 160/98; PULSE 91; RESP 16
[2023-03-27] MEDS ORDERED: FLUC150T61 PO (12:22)
[2023-03-27] MEDS ORDERED: CLOT15CR74 TP (12:22)
[2023-03-29 03:06] LABS: HIV 1-2 SCREEN 4TH GEN W/RFLX Non Reactive (Non Reactive)
== END 2023-03-26 19:16 | disposition home or self-care (01) ==
LOC: EMS 17:06
DX: N39.0 Urinary tract infection, site not specified (principal); F10.20 Alcohol dependence, uncomplicated; I10 Essential (primary) hypertension; F12.90 Cannabis use, unspecified, uncomplicated; Z98.890 Other specified postprocedural states; Z11.3 Encounter for screening for infections with a predominantly sexual mode of transmission; Z91.040 Latex allergy status; Y90.9 Presence of alcohol in blood, level not specified
CPT/HCPCS: 99284; 96365; 96375; 86592; 80053; 81001; 83690; 84702; 85025; 36415; 87086; 87186; 87491; 87591; 87389; J0696; J2405; J7030

== ENCOUNTER 2023-03-27 04:10 | Emergency (ER) | payer OTHER ==
[~2023-03-27] VITALS: Ht 160 cm; Wt 81.8 kg
[~2023-03-27 04:10] MED LIST changes: +CEPH-558 PO; +DOXY-354 PO; +EMTR1TAB53 PO; +RALT400T PO; -SERT-158 PO; -SERT-439 PO; -THIA100T80 PO
[2023-03-27 04:16] VITALS: BP 158/116; PULSE 108; RESP 17; TEMP 98.7
[2023-03-27] MEDS ORDERED: FLUC150T61 PO (12:22)
[2023-03-27] MEDS ORDERED: CLOT15CR74 TP (12:22)
== END 2023-03-27 07:13 | disposition left against medical advice (07) ==
LOC: EMS 04:10
DX: R10.30 Lower abdominal pain, unspecified (principal); F10.20 Alcohol dependence, uncomplicated; F32.A Depression, unspecified; I10 Essential (primary) hypertension; F20.9 Schizophrenia, unspecified; F17.210 Nicotine dependence, cigarettes, uncomplicated; F12.90 Cannabis use, unspecified, uncomplicated; Z98.890 Other specified postprocedural states; Z91.040 Latex allergy status
CPT/HCPCS: 99281; 99283

== ENCOUNTER 2023-03-27 08:00 | Emergency (ER) | payer OTHER ==
[~2023-03-27] VITALS: Ht 160 cm; Wt 81.8 kg
[2023-03-27 08:04] VITALS: TEMP 98.1
[2023-03-27 08:58] LABS: BASOPHILS % (AUTO) 0.3 % (0.0-2.0); EOSINOPHILS % (AUTO) 1.9 % (1.0-6.0); HEMATOCRIT 35.7 % (36-46); HEMOGLOBIN 11.9 g/dL (12.0-16.0); LYMPHOCYTES # (AUTO) 1.2 K/uL (1.0-4.8); LYMPHOCYTES % (AUTO) 17.2 % (22.0-44.0); MEAN CORPUSCULAR HEMOGLOBIN 28.3 pg (26.0-34.0); MEAN CORPUSCULAR HGB CONC 33.4 G/dL (31.0-37.0); MEAN CORPUSCULAR VOLUME 85 fL (80-100); MONOCYTES # (AUTO) 0.4 K/uL (0.1-1.0); MONOCYTES % (AUTO) 6.3 % (2.0-9.0); NEUTROPHILS # (AUTO) 5.2 K/uL (1.8-7.7); NEUTROPHILS % (AUTO) 74.3 % (40.0-70.0); PLATELET COUNT (AUTO) 291 K/uL (150-450); RED BLOOD CELL COUNT(AUTO) 4.22 MIL/uL (4.00-5.20); RED CELL DISTRIBUTION WIDTH 16.8 % (11.5-14.5)
[2023-03-27 09:03] LABS: ANION GAP 7 mmol/L (8-16); CARBON DIOXIDE 25 mmol/L (22-29); CHLORIDE 103 mmol/L (98-107); CREATININE 0.87 mg/dL (0.60-1.30); GLOMERULAR FILTR. RATE CALC > 60 mL/min (>60); GLUCOSE,RANDOM 102 mg/dL (70-110); POTASSIUM 3.9 mmol/L (3.5-5.1); SODIUM SERUM 135 mmol/L (136-145); UREA NITROGEN, BLOOD 13 mg/dL (7-18)
[2023-03-27 09:16] LABS: ALANINE AMINOTRANSFERASE 16 U/L (12-78); ALBUMIN 3.8 g/dL (3.4-5.0); ALKALINE PHOSPHATASE 87 U/L (46-116); ASPARTATE AMINOTRANSFERASE 12 U/L (15-37); BILIRUBIN,TOTAL 0.4 mg/dL (0.1-1.0); HCG,QUANTITATIVE < 1 mIU/mL (0-6); LIPASE 45 U/L (16-77); TOTAL PROTEIN, SERUM 7.7 g/dL (6.4-8.2)
[2023-03-27] MEDS ORDERED: SODIUM CHLORIDE 0.9% 1,000 ML IV ONE (09:30)
[2023-03-27] MEDS ORDERED: HYDROmorphone HCL 2 MG/ML SYRINGE IVP ONE (10:15)
[2023-03-27 12:07] LABS: APPEARANCE,URINE CLEAR (CLEAR); BILIRUBIN,URINE NEGATIVE (NEGATIVE); COLOR,URINE YELLOW (YELLOW); GLUCOSE, URINE (UA) NEGATIVE (NEGATIVE); KETONES,URINE 40-60 mg/dL (NEGATIVE); LEUKOCYTE ESTERASE ,URINE SMALL (NEGATIVE); NITRATE,URINE NEGATIVE (NEGATIVE); OCCULT BLOOD,URINE SMALL (NEGATIVE); PROTEIN,URINE NEGATIVE (NEGATIVE); SPECIFIC GRAVITIY, URINE 1.018 (1.003-1.030); UROBILINOGEN,URINE <=1.0 mg/dL (<=1.0)
[2023-03-27 12:14] LABS: AMPHET/METH SCREEN,URINE POSITIVE (NEGATIVE); BARBITURATE SCREEN, URINE NEGATIVE (NEGATIVE); BENZODIAZEPINES SCREEN,URINE NEGATIVE (NEGATIVE); CANNABINOID SCREEN,URINE POSITIVE (NEGATIVE); COCAINE SCREEN,URINE NEGATIVE (NEGATIVE); METHADONE SCREEN, URINE NEGATIVE (NEGATIVE); OPIATE SCREEN,URINE NEGATIVE (NEGATIVE); PHENCYCLIDINE SCREEN,URINE NEGATIVE (NEGATIVE)
[2023-03-27 12:15] LABS: ALCOHOL, URINE DRUG SCREEN NEGATIVE (NEGATIVE)
[2023-03-27 12:20] LABS: BACTERIA,URINE None Seen /HPF (None Seen); SQUAMOUS EPITHELIAL CELL,UR Few /LPF (None Seen)
[2023-03-27] MEDS ORDERED: CLOT15CR74 TP (12:22)
[2023-03-27] MEDS ORDERED: FLUC150T61 PO (12:22)
[2023-03-27 12:36] VITALS: BP 142/89; PULSE 89; RESP 22
== END 2023-03-27 12:56 | disposition home or self-care (01) ==
LOC: EMS 08:00
DX: B37.31 Acute candidiasis of vulva and vagina (principal); R10.2 Pelvic and perineal pain; F10.20 Alcohol dependence, uncomplicated; F32.A Depression, unspecified; I10 Essential (primary) hypertension; F20.9 Schizophrenia, unspecified; F17.210 Nicotine dependence, cigarettes, uncomplicated; F12.90 Cannabis use, unspecified, uncomplicated; Z98.890 Other specified postprocedural states; Z91.040 Latex allergy status
CPT/HCPCS: 99285; 74176; 96374; 96361; 80053; 81001; 83690; 84702; 85025; 36415; 87086; 87186; 80307; J1170; J7030; G0480

== ENCOUNTER 2024-05-16 09:35 | Emergency (ER) | payer SELFPAY ==
[~2024-05-16] VITALS: Ht 160 cm; Wt 81.8 kg
[~2024-05-16 09:35] MED LIST changes: +CLOT15CR75 TP; +FLUC150T61 PO
[2024-05-16 10:06] LABS: COVID AG,FIA SOURCE NASAL SWAB
[2024-05-16 10:42] LABS: SARS-COV2 (COVID) ANTIGEN,FIA Negative (Negative)
[2024-05-16 10:43] LABS: INFLUENZA TYPE A NEGATIVE FOR TYPE A (NEGATIVE); INFLUENZA TYPE B NEGATIVE FOR TYPE B (NEGATIVE)
[2024-05-16] MEDS ORDERED: BENZ-227 PO (11:41)
[2024-05-16] MEDS: ALBUTEROL SULFATE HFA 90 MCG/PUFF 8 GM INHALER IH ONE (11:46)
[2024-05-16 11:57] VITALS: PULSE 91; RESP 18; O2SAT 98
[2024-05-16 11:59] VITALS: PULSE 91; RESP 18; O2SAT 98
[2024-05-16 12:17] VITALS: BP 148/96; PULSE 89; RESP 18; TEMP 98.6; O2SAT 99
== END 2024-05-16 12:39 | disposition home or self-care (01) ==
LOC: EMS 09:38
DX: J06.9 Acute upper respiratory infection, unspecified (principal); J34.89 Other specified disorders of nose and nasal sinuses; J45.909 Unspecified asthma, uncomplicated; I10 Essential (primary) hypertension; F17.210 Nicotine dependence, cigarettes, uncomplicated; F20.9 Schizophrenia, unspecified; Z87.440 Personal history of urinary (tract) infections; Z20.822 Contact with and (suspected) exposure to COVID-19
CPT/HCPCS: 99283; 99406; 87426; 87804; 94640; J3535